=== PATIENT | male | born 1975 | race Caucasian/White ===

== ENCOUNTER 2018-01-21 16:25 | Outpatient (REF) | payer BC, SELFPAY ==
[2018-01-23 11:01] LABS: HIV-1/2 Ag & Ab Screen Negative (NEGAT)
[2018-01-23 11:25] LABS: Syphilis Serology (RPR) Negative (Negative)
[2018-01-23 13:41] LABS: Chlamydia Result Negative; GC Result Negative; Specimen Description URINE
== END 2018-01-21 16:26 ==
LOC: NCHCN 16:25
PROVIDERS: PCP Physician Assistant Medical; Visit Provider Physician Assistant Medical
DX: Z11.3 Encounter for screening for infections with a predominantly sexual mode of transmission (principal); Z11.4 Encounter for screening for human immunodeficiency virus [HIV]
CPT/HCPCS: 87389; 87491; 87591; 86592

== ENCOUNTER 2021-06-26 09:58 | Outpatient (REF) | payer BC, SELFPAY ==
--- NOTE | 2021-06-26 09:00 | SKI_PTH ---
PATIENT: Marty Harvey LOC: [facility] U#:[id number] AGE/SX: 46/M ROOM: RE06/26/[address]: Leoncio He : 1975 BED: DIS: 06/26/2021 SPEC #: [id number] RECD: 06/27/21 11:55 STATUS: MARCELL REEdwin #: [id number] SOBEIDA: 06/26/21 09:[address] RECD BY: Loretta Connor ENTERED: 06/27/21 11:55 SP TYPE: RADHA MEDRANO DR: Neymar Galindo V Tissues: 1 - SKIN BIOPSY(SHAVE/PUNCH) Procedures: SKIN LEVEL 4 Comments: [id number]
== END 2021-06-26 09:59 | disposition home or self-care (01) ==
LOC: LBN 09:58
PROVIDERS: PCP Physician Assistant Medical; Visit Provider Nurse Practitioner Family
DX: L82.1 Other seborrheic keratosis (principal)
CPT/HCPCS: 88305

== ENCOUNTER 2021-06-28 16:26 | Outpatient (REF) | payer BC, SELFPAY ==
[2021-06-28 20:04] LABS: ALT 23 U/L (16-63); AST 11 U/L (15-37); Albumin 4.4 g/dL (3.4-5.0); Alkaline Phosphatase 69 U/L (46-116); Anion Gap 3.6 mmol/L (3-11); BUN 15 mg/dL (7-18); Bilirubin, Total 0.4 mg/dL (0.2-1.0); CO2 28.4 mmol/L (21.0-32.0); Calcium 9.4 mg/dL (8.5-10.1); Calculated LDL 118 mg/dL (<100); Chloride 104 mmol/L (98-107); Cholesterol 192 mg/dL (<200); Glucose 86 mg/dL (74-106); HDL Cholesterol 55 mg/dL (40-60); Potassium 4.3 mmol/L (3.5-5.1); Sodium 136 mmol/L (136-145); Total Protein 7.2 g/dL (6.4-8.2); Triglyceride 95 mg/dL (<150)
[2021-07-03 17:51] LABS: Lyme Ab w Rflx to Lyme Confirm Negative (Negative)
== END 2021-06-28 16:27 | disposition home or self-care (01) ==
LOC: NCHCN 16:26
PROVIDERS: PCP Physician Assistant Medical; Visit Provider Nurse Practitioner Family
DX: Z00.00 Encounter for general adult medical examination without abnormal findings (principal); M25.59 Pain in other specified joint; Z13.6 Encounter for screening for cardiovascular disorders
CPT/HCPCS: 80053; 80061; 86618

== ENCOUNTER 2022-05-21 16:33 | Outpatient (REF) | payer BC, SELFPAY ==
[2022-05-21 18:40] LABS: HCT 40.9 % (40.0-50.0); HGB 14.1 g/dL (13.5-17.5); MCH 30.7 pg (27.0-33.0); MCHC 34.5 % (32.0-36.0); MCV 89 fL (80-95); MPV 10.7 fL (8.0-11.0); Platelet Count 356 10^3/uL (130-400); RBC 4.59 10^6/uL (4.36-5.78); RDW 12.5 % (11.8-14.1); RDW-SD 40.6 fL; WBC 6.27 10^3/uL (4.4-10.8)
[2022-05-21 19:05] LABS: BUN 16 mg/dL (7-18); Calcium 9.2 mg/dL (8.5-10.1); Chloride 104 mmol/L (98-107); Estimated GFR 93.42 (mL/min/1.73m2); Glucose 103 mg/dL (74-106); Potassium 3.9 mmol/L (3.5-5.1); Sodium 139 mmol/L (136-145)
== END 2022-05-21 16:34 | disposition home or self-care (01) ==
LOC: NCHCN 16:33
PROVIDERS: PCP Physician Assistant Medical; Visit Provider Nurse Practitioner Family
DX: R42 Dizziness and giddiness (principal)
CPT/HCPCS: 80048; 85027; 84443

== ENCOUNTER 2024-01-26 17:49 | Outpatient (REF) | payer BC, SELFPAY ==
--- OUTSIDE RECORDS SUMMARY | 2024-01-26 17:53 | XMS_ITS | Continuity of Care Document ---
Author Organization [facility] Address [address] [place] [address] Assessment No assessment recorded. Plan of Treatment Reminders Order Date Submit Date Provider Last Modified By Organization Details Last Modified Time Details Appointments Follow Up 2023 08:30A M Not available Not available Not available Lab lipid panel, serum [address] [facility] (Registration ), [address] [place] [address] [place], [address], 01/26/2024 10:53:54 CMP, serum or plasma [address] [facility] (Registration ), [address] [place] [address] [place], [address], 01/26/2024 10:53:54 CBC [address] [facility] (Registration ), [address] [place] [address] [place], [address], 01/26/2024 10:53:54 Referral psychiatr ist referral - re establish care, I am restartin g his lamotrigi ne 2023 024 ATHENAFAX Saloni Barraza [facility], [address] [place] [address], [address], 01/26/2024 11:10:41 Procedures None recorded. Surgeries None recorded. Imaging None recorded. Medication Orders lamotrigi ne 25 mg tablet 2023 024 [employer] [facility], [address] [facility], [place], [address], 01/26/2024 09:18:06 lamotrigi ne 100 mg tablet 2023 024 [facility] #[facility], [address] [facility], [place], [address], 01/26/2024 09:18:06 Patient TargetsNo targets recorded. Patient Instructions Encounter Date Encounter Id Patient Instructions Last Modified By Organization Details Last Modified Time 01/26/2024 [id number] Saloni Barraza is at [facility], I restarted your Lamotrigine at 25 mg, it will take you a month to taper up to 100 mg daily. Please watch for any side effects including rash. I will send you a letter with the results of your lab work herber Not available 01/26/2024 09:04:51 Reason for Referral Psychiatrist Referral for Mo od disorder re establish care, I am restarting his lamotrigine Referring Physician: Charito Ross, Family Medicine, Encounter Date: 01/26/2024 Problems Name Status Onset Date Resolution Date Notes Provider Name and Address Organization Details Recorded Time Pure hyperglycerid emia Active 2014 Problem Code: E78.1; Problem Code Type: ICD-10; Not Available [facility] 3 05:22:00 Non-neoplasti c nevus Active 2014 Problem Code: I78.1; Problem Code Type: ICD-10; Not Available [facility] 3 05:22:00 Traumatic or non-traumatic injury Active 2015 Problem Code: T14.8; Problem Code Type: ICD-10; Not Available [facility] 3 05:22:00 Acute pharyngitis Completed 201610/09/2016 Problem Code: J02.9; Problem Code Type: ICD-10; Not Available [facility] 3 05:22:00 Pain of right shoulder joint Active 201604/29/2017 - Comments only - Neymar Galindo PA-C - Suspect arthritic flare AC joint. Recommend anti-inflamma tories, continued range of motion. Recheck if not improving. Reviewed treatment options. Problem Code: M25.511; Problem Code Type: ICD-10; Not Available [facility] 05:[facility]:00 Nicotine dependence Active 2017 Problem Code: Z87.891; Problem Code Type: ICD-10; Not Available [facility] 3 05:22:00 Adult health examination Active 201706/26/2021 - Comments only - Charito Ross PERSONAL COMPUTER SPECIALIST - Healthy appearing gentleman in no distress. Flu shot and Tdap today. COVID vaccine and booster up to date. Will have him RTC for nurse visit for fasting lab work to check lipids and cmp. Referred for colonoscopy Problem Code: Z00.00; Problem Code Type: ICD-10; Not Available [facility] 3 05:22:01 Venereal disease screening Completed 201703/04/2018 01/22/2018 - Comments only - Neymar Galindo PA-C - No current symptoms. Routine screening. Problem Code: Z11.3; Problem Code Type: ICD-10; Not Available [facility] 3 05:22:01 Major depression, single episode Active 201701/22/2018 - Comments only - Neymar Galindo PA-C - Patient with symptoms of depression. He is willing to start medication. He is engaged in counseling. No thoughts of self-harm or harm to others. Follow-up in 5 weeks. Reviewed risks and benefits to medication. Also reviewed the treatment strategies around medication including starting and stopping. Problem Code: F32.9; Problem Code Type: ICD-10; Not Available [facility] 3 05:22:01 Joint pain Active 202106/26/2021 - Comments only - Charito Ross PERSONAL COMPUTER SPECIALIST - Marty is very concerned about having lyme disease as was recently diagnosed with lyme disease and they are hiking buddies. He has joint pain mostly in the right hip but sometimes in his hands and knees as well. Will check Lyme and proceed accordingly Problem Code: M25.50; Problem Code Type: ICD-10; Not Available [facility] 3 05:22:01 Hyperlipidemi a screening Active 2021 Problem Code: Z13.220; Problem Code Type: ICD-10; Not Available [facility] 3 05:22:01 Screening for malignant neoplasm of colon Active 2021 Problem Code: Z12.11; Problem Code Type: ICD-10; Not Available [facility] 3 05:22:01 Neoplasm of uncertain behavior of skin Active 202106/26/2021 - Comments only - Charito Chute PERSONAL COMPUTER SPECIALIST - shave biopsy right calf lesion done today. Marty tolerated well. Would like to recheck lesion right chest in the next few months and consider bx that as well. Problem Code: D48.5; Problem Code Type: ICD-10; Not Available [facility] 3 05:22:01 Neck pain Active 202110/01/2021 - Comments only - Charito Chute PERSONAL COMPUTER SPECIALIST - Numbness and tingling left neck to left shoulder, left elbow to left hand. Will refer to PT for further assessment, consider MRI C spine per PT recommendatio nRhys Marty will let us know if no improvment or feeling worse Problem Code: M54.2; Problem Code Type: ICD-10; Not Available [facility] 3 05:22:01 Laceration of hand without foreign body Active 2021 Problem Code: S61.411A; Problem Code Type: ICD-10; Not Available [facility] 3 05:22:01 Dizziness and giddiness Active 202108/29/2022 - Comments only - Charito Chute PERSONAL COMPUTER SPECIALIST - resolved with antihistamine . Ok to take prn Problem Code: R42; Problem Code Type: ICD-10; Not Available [facility] 3 05:22:02 Cognitive deficit in attention Active 202208/29/2022 - Comments only - Charito Chute PERSONAL COMPUTER SPECIALIST - Multiyear hx of difficulty with concentration , dropped out of high school. Has discussed possibility of ADHD with therapist and would like testing for confirmation and possible tx. Will refer to [facility] SPOTTER[facility]IN [facility]ail for futher work up. Problem Code: R41.840; Problem Code Type: ICD-10; Not Available [facility] 3 05:22:02 Otitis media Active 2022 Problem Code: H66.90; Problem Code Type: ICD-10; Not Available [facility] 3 05:22:02 Mood disorder Active 202212/10/2022 - Comments only - Saloni Barraza APRN - Improved with lamotrigine at 100mg. He would like to continue at this dose given his improved mood with the knowledge that an increase by 50mg can occur if needed. Plan for Marty to follow up with PCP for continued management of this. By treating his overall mood, it has improved his symptoms of irritability, anxiety which have impacted his focus and concentration . He may have an ADHD diagnosis but caution with stimulant treatment due to impact of stimulants with possible mood disorders. Problem Code: F39; Problem Code Type: ICD-10; Not Available [facility] 3 05:22:02 Attention deficit hyperactivity disorder Active 202210/15/2022 - Comments only - Saloni Barraza APRN - Per the ASRS- Marty scores highly for ADHD symptoms and based on my assessment of his past and current symptoms, I do feel that he has ADHD. I would like to stabilize his moods before trying a stimulant. Will plan on low dose long acting methylphenida te to start possibly at next visit. I did express briefly some of the expectations of stimulant prescriptions including the stimulant contract, random urine drug screens and pill counts. Will plan to have patient sign contract next visit. Problem Code: F90.9; Problem Code Type: ICD-10; Not Available [facility] 3 05:22:02 Cough Active 2022 Problem Code: R05.8; Problem Code Type: ICD-10; Not Available [facility] 3 05:22:02 Allergic rhinitis Active 2022 Problem Code: J30.9; Problem Code Type: ICD-10; Not Available [facility] 3 05:22:02 Chloasma Completed 201406/19/2017 Problem Code: L81.1; Problem Code Type: ICD-10; Not Available [facility] 3 05:22:02 Pain of joint of knee Completed 201406/19/2017 Problem Code: M25.569; Problem Code Type: ICD-10; Not Available [facility] 3 05:22:03 Hyperlipidemi a Active 2023 [facility] [address], [place], [address] , [facility], [facility] 4 08:58:01 Problem Notes None recorded. Medical Equipment None Reported. Medications Name Sig Start Date Stop Date Status Note LastModified by Organization Details LastModified Time Singulair 10 mg tablet Take 1 tablet by mouth once a day 01/25 completed pt reports not taking Not Available Not Available Not Available Vitamin B-12 500 mcg tablet active Not Available Not Available Not Available amoxicill in 500 mg tablet Take 1 tablet by mouth twice a day 10/07 completed Not Available Not Available Not Available lamotrigi ne 25 mg tablet 1 tab by mouth once a day x 14 days, then increase to 2 tabs once a day x 14 days, then increase to 100 mg tablets 2023 active Not Available Not Available Not Avai lable Prozac 20 mg capsule Take 1 capsule by mouth once a day 06/26 completed Not Available Not Available Not Available multivita min capsule Take 1 tablet by mouth daily 2014 active Not Available Not Available Not Avai lable lamotrigi ne 100 mg tablet 1 tablet by mouth once a day after two weeks of 50 mg daily 2023 active Not Available Not Available Not Avai lable cranberry 500 mg capsule Take 1 capsule by mouth once a day active Not Available Not Available No t Available Multivita mins Take 1 tablet by mouth once a day 2014 active Not Available Not Available Not Avai lable Vitamin D3 10 mcg (400 unit) chewable tablet Take 1 tablet by mouth once a day active Not Available Not Available No t Available Vitals Date Recorded Body weight Oxygen saturation Oxygen saturation in Arterial blood by Pulse oximetry Heart rate Systolic blood pressure Diastolic blood pressure Provider Name and Address Organization Details Last Updated DateTime 4 55033.8 8 g 96 % 96 % 69 /min 108 mm[Hg] 64 mm[Hg] DANIAL CLEMENTE [place] [facility]. 08:38:13 Social History None recorded. Functional Status None recorded. Mental Status None recorded. Family History Relationship Description Onset Age of this Age Resolved Age Notes Father Family history of Hypertension Father Family history of he art failure Mother Family history of malignant neoplasm skin Cancer Notes:*Problem: father decea sed @ age 83 hx of SC x 5 siblings alive and well Medical History No medical history recorded. Immunizations Vaccine Type Date Status Provider Name and Address Organization Details Recorded Time MMR 05/14/2004 completed Not Available [facility] 06:16:27 Td (adult), 2 Lf tetanus toxoid, preservative free, adsorbed 06/26/2021 completed Not Available [facility] 04/11/2023 06:16:28 Tdap 08/18/2009 completed Not Available [facility] 06:16:28 Influenza, split virus, trivalent, preservative 06/12/2015 completed Not Available [facility] 04/11/2023 06:16:28 Influenza, split virus, quadrivalent, PF 06/26/2021 completed Not Available [facility] 04/11/2023 06:16:28 Influenza, split virus, quadrivalent, PF 05/21/2022 completed Not Available [facility] 04/11/2023 06:16:28 Influenza, split virus, quadrivalent, preservative 04/29/2017 completed Not Available [facility] 04/11/2023 06:16:28 SARS-COV-2 (COVID-19) vaccine, UNSPECIFIED 08/09/2020 completed Not Available [facility] 04/11/2023 06:16:28 SARS-COV-2 (COVID-19) vaccine, UNSPECIFIED 04/12/2021 completed Not Available [facility] 04/11/2023 06:16:28 COVID-19, mRNA, LNP-S, bivalent, PF, 30 mcg/0.3 mL dose 05/21/2022 completed Not Available [facility] 04/11/2023 06:16:28 Past Encounters Encounter ID Performer Location Encounter Start Date Encounter Closed Date Diagnosis/Indication Diagnosis SNOMED-CT Code [id number] [facility] [address] [address] 01/26/2024 08:32:25 01/26/2024 09:12:25 Mood disorder 24569583 Attention deficit hyperactivity disorder 797504551 Hyperlipidemia 05637932 Health Concerns Section Related Observation LastModified by Organization Detai ls LastModified Time None Recorded Concern Status LastModified by Organization Details LastModified Time None Recorded Payers Encounter Date Sequence Insurance Name Policy Number Policy Faith Covered Member ID Faith Member ID Guarantor Name 01/26/2024 1 [place] [employer] [facility] Marty Harvey [id number] Marty Harvey Notes Date Note Type Note Provider Name and Address Organization Details Recorded Time 01/26/2024 text/html HPI Notes: cc follow up Mood disorder, ADD Mood disorder - ran out of his lamotrigine last weekend, spouse has noticed a difference in his mood, he has been more frustrated, more aggravated. He would like to restart and he would like to follow up with Saloni Castano. He isn't sure about treatment for ADHD, spouse is down on stimulants. Saloni felt he was likely ahdh. Has racing thoughts at times. Increased anxiety over the past few days since off lamotrigine. Has been greater then 6 days since last dose Colonoscopy done at [facility], in the last ten years. Hx of mildly elevated ldl in 2021 at 118, has gained 9 pounds since September 2022 CHARITO ROSS, REVENUE OFFICER [address], [place], [address], [place] [facility], [facility]. 01/26/2024 09:22:33
--- OUTSIDE RECORDS SUMMARY | 2024-01-26 17:53 | XMS_ITS | Data Portability ---
Author Organization [facility] Address [place] [address] Assessment No assessment recorded. Plan of Treatment Reminders Order Date Submit Date Provider Last Modified By Organization Details Last Modified Time Details Appointments Follow Up 2023 08:30A M Not available Not available Not available Lab lipid panel, serum [address] [facility] (Registration ), [address] [place] [address] [place], [address], 01/26/2024 10:53:54 CMP, serum or plasma [address] [facility] (Registration ), [address] [place] [address] [place], [address], 01/26/2024 10:53:54 CBC [address] [facility] (Registration ), [address] [place] [address] [place], [address], 01/26/2024 10:53:54 Referral psychiatr ist referral - re establish care, I am restartin g his lamotrigi ne 2023 024 ZACK Barraza [facility], [address] [place] [address], [address], 01/26/2024 11:10:41 Procedures None recorded. Surgeries None recorded. Imaging None recorded. Medication Orders lamotrigi ne 25 mg tablet 2023 024 [facility], [address] [facility], [place], [address], 01/26/2024 09:18:06 lamotrigi ne 100 mg tablet 2023 024 [email or web address], [address] [facility], [place], [address], 01/26/2024 09:18:06 Patient TargetsNo targets recorded. Patient Instructions Encounter Date Encounter Id Patient Instructions Last Modified By Organization Details Last Modified Time 01/26/2024 [id number] Saloni Barraza is at [facility], I restarted your Lamotrigine at 25 mg, [...] E78.1; Problem Code Type: ICD-10; Not Available [facility] 3 05:22:00 Non-neoplasti c nevus Active 2014 Problem Code: I78.1; Problem Code Type: ICD-10; Not Available [facility] 3 05:22:00 Traumatic or non-traumatic injury Active 2015 Problem Code: T14.8; Problem Code Type: ICD-10; Not Available [facility] 3 05:22:00 Acute pharyngitis Completed 201610/09/2016 Problem Code: J02.9; Problem Code Type: ICD-10; Not Available [facility] 3 05:22:00 Pain of right shoulder joint Active 201604/29/2017 - Comments only - Neymar Galindo PA-C - Suspect arthritic flare AC joint. Recommend anti-inflamma tories, continued range of motion. Recheck if not improving. Reviewed treatment options. Problem Code: M25.511; Problem Code Type: ICD-10; Not Available [facility] 3 05:22:00 Nicotine dependence Active 2017 Problem Code: Z87.891; Problem Code Type: ICD-10; Not Available [facility] 3 05:22:00 Adult health examination Active 201706/26/2021 - Comments only - Charito Ross MANAGER WELDING - Healthy appearing gentleman in no distress. Flu shot and Tdap today. COVID vaccine and booster up to date. Will have him RTC for nurse visit for fasting lab work to check lipids and cmp. Referred for colonoscopy Problem Code: Z00.00; Problem Code Type: ICD-10; Not Available [facility] 3 05:22:01 Venereal disease screening Completed 201703/04/2018 01/22/2018 - Comments only - Neymar Galindo PA-C - No current symptoms. Routine screening. Problem Code: Z11.3; Problem Code Type: ICD-10; Not Available [facility] 3 05:22:01 Major depression, single [...] F32.9; Problem Code Type: ICD-10; Not Available [facility] 3 05:22:01 Joint pain Active 202106/26/2021 - Comments only - Charito Ross MANAGER WELDING - Marty is very concerned about having lyme disease as was recently diagnosed with lyme disease and they are hiking buddies. He has joint pain mostly in the right hip but sometimes in his hands and knees as well. Will check Lyme and proceed accordingly Problem Code: M25.50; Problem Code Type: ICD-10; Not Available [facility] 3 05:22:01 Hyperlipidemi a screening Active 2021 Problem Code: Z13.220; Problem Code Type: ICD-10; Not Available [facility] 3 05:22:01 Screening for malignant neoplasm of colon Active 2021 Problem Code: Z12.11; Problem Code Type: ICD-10; Not Available [facility] 3 05:22:01 Neoplasm of uncertain behavior of skin Active 202106/26/2021 - Comments only - Charito Chute MANAGER WELDING - shave biopsy right calf lesion done today. Marty tolerated well. Would like to recheck lesion right chest in the next few months and consider bx that as well. Problem Code: D48.5; Problem Code Type: ICD-10; Not Available [facility] 3 05:22:01 Neck pain Active 202110/01/2021 - Comments only - Charito Chute MANAGER WELDING - Numbness and tingling left neck to left shoulder, left elbow to left hand. Will refer to PT for further assessment, consider MRI C spine per PT recommendatio nRhys Marty will let us know if no improvment or feeling worse Problem Code: M54.2; Problem Code Type: ICD-10; Not Available [facility] 3 05:22:01 Laceration of hand without foreign body Active 2021 Problem Code: S61.411A; Problem Code Type: ICD-10; Not Available [facility] 3 05:22:01 Dizziness and giddiness Active 202108/29/2022 - Comments only - Charito Chute MANAGER WELDING - resolved with antihistamine . Ok to take prn Problem Code: R42; Problem Code Type: ICD-10; Not Available [facility] 3 05:22:02 Cognitive deficit in attention Active 202208/29/2022 - Comments only - Charito Chute MANAGER WELDING - Multiyear hx of difficulty with concentration , dropped out of high school. Has discussed possibility of ADHD with therapist and would like testing for confirmation and possible tx. Will refer to COMPUTER SUPPORT TECHNICIANJUSTIN Vail for futher work up. Problem Code: R41.840; Problem Code Type: ICD-10; Not Available [facility] 3 05:22:02 Otitis media Active 2022 Problem Code: H66.90; Problem Code Type: ICD-10; Not Available [facility] 3 05:22:02 Mood disorder Active [...] F39; Problem Code Type: ICD-10; Not Available [facility] 3 05:22:02 Attention deficit hyperactivity [...] F90.9; Problem Code Type: ICD-10; Not Available [facility] 3 05:22:02 Cough Active 2022 Problem Code: R05.8; Problem Code Type: ICD-10; Not Available [facility] 3 05:22:02 Allergic rhinitis Active 2022 Problem Code: J30.9; Problem Code Type: ICD-10; Not Available [facility] 3 05:22:02 Chloasma Completed 201406/19/2017 Problem Code: L81.1; Problem Code Type: ICD-10; Not Available [facility] 3 05:22:02 Pain of joint of knee Completed 201406/19/2017 Problem Code: M25.569; Problem Code Type: ICD-10; Not Available [facility] 3 05:22:03 Hyperlipidemi a Active 2023 [facility] SOTO [address], [place], [address] , [facility], [facility]. 4 08:58:01 Problem Notes None recorded. Medical [...] Address Organization Details Last Updated DateTime 4 [address]6380.8 8 g 96 % 96 % 69 /min 108 mm[Hg] 64 mm[Hg] DANIAL CLEMENTE MA [facility] 08:38:13 Social History None recorded. Functional Status None recorded. Mental Status None recorded. Family History Relationship Description Onset Age of this Age Resolved Age Notes Father Family history of Hypertension Father Family history of he art failure Mother Family history of malignant neoplasm skin Cancer Notes:*Problem: father decea sed @ age 83 hx of MO x 5 siblings alive and well Medical History No medical history recorded. Immunizations Vaccine Type Date Status Provider Name and Address Organization Details Recorded Time MMR 05/14/2004 completed Not Available [facility] 06:16:27 Td (adult), 2 Lf tetanus toxoid, preservative free, adsorbed 06/26/2021 completed Not Available [facility] 04/11/2023 06:16:28 Tdap 08/18/2009 completed Not Available [facility] 06:16:28 Influenza, split virus, trivalent, preservative 06/12/2015 completed Not Available [facility] 04/11/2023 06:16:28 Influenza, split virus, quadrivalent, PF 06/26/2021 completed Not Available [facility] 04/11/2023 06:16:28 Influenza, split virus, quadrivalent, PF 05/21/2022 completed Not Available [facility] 04/11/2023 06:16:28 Influenza, split virus, quadrivalent, preservative 04/29/2017 completed Not Available [facility] 04/11/2023 06:16:28 SARS-COV-2 (COVID-19) vaccine, UNSPECIFIED 08/09/2020 completed Not Available [facility] 04/11/2023 06:16:28 SARS-COV-2 (COVID-19) vaccine, UNSPECIFIED 04/12/2021 completed Not Available [facility] 04/11/2023 06:16:28 COVID-19, mRNA, LNP-S, bivalent, PF, 30 mcg/0.3 mL dose 05/21/2022 completed Not Available [facility] 04/11/2023 06:16:28 Past Encounters Encounter ID Performer Location Encounter Start Date Encounter Closed Date Diagnosis/Indication Diagnosis SNOMED-CT Code [id number] [facility] SOTO [address] [address] 01/26/2024 08:32:25 01/26/2024 09:12:25 Mood disorder 78066935 Attention deficit hyperactivity disorder 559957889 Hyperlipidemia 69243070 Health Concerns Section Related Observation LastModified by Organization Detai ls LastModified Time None Recorded Concern Status LastModified by Organization Details LastModified Time None Recorded Advance Directives Directive None Recorded Payers Encounter Date Sequence Insurance Name Policy Number Policy Faith Covered Member ID Faith Member ID Guarantor Name 01/26/2024 1 [place] [employer] [place] Marty Harvey [id number] Marty Harvey Notes Date Note Type Note [...] days since last dose Colonoscopy done at [facility], in the last ten years. Hx of mildly elevated ldl in 2021 at 118, has gained 9 pounds since September 2022 CHARITO ROSS, LARD MAKER [address], [place], [address], [facility]. 01/26/2024 09:22:33
[2024-01-26 19:30] LABS: HCT 42.2 % (40.0-50.0); HGB 14.8 g/dL (13.5-17.5); MCH 32.1 pg (27.0-33.0); MCHC 35.1 % (32.0-36.0); MCV 92 fL (80-95); MPV 11.5 fL (8.0-11.0); Platelet Count 323 10^3/uL (130-400); RBC 4.61 10^6/uL (4.36-5.78); RDW 11.9 % (11.8-14.1); WBC 5.79 10^3/uL (4.4-10.8)
[2024-01-26 19:41] LABS: ALT 35 U/L (16-63); Albumin 4.3 g/dL (3.4-5.0); Alkaline Phosphatase 80 U/L (46-116); BUN 14 mg/dL (7-18); Bilirubin, Total 0.49 mg/dL (0.2-1.0); Calcium 9.3 mg/dL (8.5-10.1); Calculated LDL 120 mg/dL (<100); Chloride 103 mmol/L (98-107); Cholesterol 233 mg/dL (<200); Estimated GFR 92.84 (mL/min/1.73m2); Glucose 96 mg/dL (74-106); HDL Cholesterol 47 mg/dL (40-60); Potassium 4.7 mmol/L (3.5-5.1); Sodium 140 mmol/L (136-145); Total Protein 7.5 g/dL (6.4-8.2); Triglyceride 334 mg/dL (<150)
[2024-01-26 20:03] LABS: AST < 5 U/L (15-37)
== END 2024-01-26 17:50 | disposition home or self-care (01) ==
LOC: NCHCN 17:49
PROVIDERS: PCP Physician Assistant Medical; Visit Provider Nurse Practitioner Family
DX: F39 Unspecified mood [affective] disorder (principal); E78.5 Hyperlipidemia, unspecified
CPT/HCPCS: 80053; 80061; 85027

== ENCOUNTER 2024-04-26 09:03 | Outpatient (REF) | payer BC, SELFPAY ==
[2024-04-26 19:30] LABS: Calculated LDL 124 mg/dL (<100); Cholesterol 229 mg/dL (<200); HDL Cholesterol 59 mg/dL (40-60); Triglyceride 232 mg/dL (<150)
[2024-04-28 08:27] LABS: ALT 29 U/L (16-63); AST 16 U/L (15-37); Albumin 4.3 g/dL (3.4-5.0); Alkaline Phosphatase 66 U/L (46-116); BUN 18 mg/dL (7-18); CREATININE 1.2 mg/dL (0.70-1.30); Calcium 9.5 mg/dL (8.5-10.1); Chloride 106 mmol/L (98-107); Estimated GFR 74.13 (mL/min/1.73m2); Glucose 96 mg/dL (74-106); Potassium 4.7 mmol/L (3.5-5.1); Sodium 143 mmol/L (136-145); Total Protein 7.4 g/dL (6.4-8.2)
== END 2024-04-26 09:04 | disposition home or self-care (01) ==
LOC: NCHCN 09:03
PROVIDERS: PCP Physician Assistant Medical; Visit Provider Nurse Practitioner Family
DX: E78.5 Hyperlipidemia, unspecified (principal)
CPT/HCPCS: 80051; 80061; 82947; 84520; 82040; 82310; 82565; 84075; 84155; 84450; 84460